=== PATIENT | male | born 1985 | race Hispanic/Latino ===

== ENCOUNTER 2021-12-10 17:52 | Emergency (ER) | payer SELFPAY | END 2021-12-10 20:24 | disposition home or self-care (01) | LOC: CSHERS 17:52 | DX: S00.83XA Contusion of other part of head, initial encounter (principal); H11.32 Conjunctival hemorrhage, left eye; Y04.2XXA Assault by strike against or bumped into by another person, initial encounter | CPT/HCPCS: 70450; 70486 ==